=== PATIENT | female | born 1965 | race Caucasian/White ===

== ENCOUNTER → 2017-09-28 09:34 | Outpatient (CLI) | payer BC, SELFPAY ==
--- NOTE | 2017-09-28 09:41 | US_ITS ---
US transvaginal HISTORY: Postmenopausal bleeding ITS.REASON: LLQ ABD ABSCESS, RLQ PAIN ORDERING PHYSICIAN: Catalina Tapia PATIENT AGE: 52 years COMPARISON: None FINDINGS: The uterus measures 7.5 x 4.4 x 5 cm with a combined endometrial thickness of 4 mm. There are 3 areas which appear to represent fibroids within the uterus 1 x 1 cm anterior body, 1.2 x 1.3 cm fundal area, 1 x 1 cm anterior body superiorly, and 2.6 x 3.2 cm projecting off the posterior aspect of the body the uterus. These areas showed heterogeneous slight decreased echogenicity. Left ovary is enlarged at 4.6 x 4.4 cm containing a 4 cm cyst without perceptible marsh or internal septation. The right ovary measures 2.6 x 2 cm and has an unremarkable appearance. No cul-de-sac fluid. IMPRESSION: 1. Fibroid involvement of the uterus. 2. 4 cm simple appearing left ovarian cyst
== END ==
PROVIDERS: Family Provider Nurse Practitioner Family; PCP Family Medicine; Visit Provider Nurse Practitioner
DX: R10.31 Right lower quadrant pain (principal); K65.1 Peritoneal abscess
CPT/HCPCS: 76830

== ENCOUNTER → 2017-11-06 14:55 | Outpatient (CLI) | payer BC, SELFPAY ==
[2017-11-06 15:01] LABS: Microscopic, Urine URINE MICROSCOPIC (MICROSCOPIC)
[2017-11-06 15:14] LABS: Appearance,Urine CLEAR (Clear); Bilirubin,Urine Negative (Negative); Blood, Urine Negative (Negative); Color,Urine YELLOW (Yellow); Glucose,Urine (UA) Negative (Negative); Ketones,Urine Negative (Negative); Leukocyte Esterase,Urine Negative (Negative); Nitrate,Urine Negative (Negative); PH,Urine 6.5 (5.0-8.5); Protein,Urine Negative (Negative); Specific Gravity, Urine <= 1.005 (1.005-1.030); Urobilinogen,Urine 0.2 EU/dl (0.2)
[2017-11-06 15:19] LABS: Basophils # 0.1 K/mm3 (0-0.2); Basophils % 0.7 % (0.1-2.0); Eosinophils # 0.2 K/mm3 (0.0-0.4); Eosinophils % 2.6 % (0.1-12.0); Hematocrit 44.8 % (37.0-47.0); Hemoglobin 14.7 g/dL (12.2-16.2); Lymphocytes # 2.8 K/mm3 (0.7-4.5); Lymphocytes % 42.2 K/mm3 (10-50); Mean Corpuscular HGB Conc 32.7 g/dL (31.8-35.4); Mean Corpuscular Hemoglobin 31.1 pg (27.0-31.2); Mean Corpuscular Volume 94.9 fl (81-99); Mean Platelet Volume 7.8 fl (7.4-10.4); Monocytes # 0.3 K/mm3 (0.1-1.0); Monocytes % 4.4 % (1.7-9.3); Neutrophils # 3.4 K/mm3 (1.8-7.8); Neutrophils % 50.1 % (37.0-80.0); Platelet Count 339 K/mm3 (142-424); Red Blood Count 4.72 M/mm3 (4.20-5.40); Red Cell Distribution Width 12.4 % (11.5-17.5); White Blood Count 6.7 K/mm3 (4.8-10.8)
[2017-11-06 15:26] LABS: Bacteria,Urine Trace /lpf; WBC,Urine Occasional #/hpf (0-3)
[2017-11-06 15:51] LABS: Alanine Aminotransferase 29 U/L (12-78); Albumin Level 4.4 gm/dL (3.4-5.0); Albumin/Globulin Ratio 1.4 (1.1-1.8); Alkaline Phosphatase 86 U/L (46-116); Anion Gap 14.4 mEq/L (5-15); Aspartate Amino Transferase 21 U/L (15-37); Bilirubin,Total 0.3 mg/dL (0.2-1.0); Blood Urea Nitrogen 19 mg/dL (7-18); Calcium 9.8 mg/dL (8.5-10.1); Carbon Dioxide 28 mmol/L (21.0-32.0); Chloride 105 mmol/L (98-107); Creatinine,Serum 0.67 mg/dL (0.55-1.02); Estimated Glomerular Filt Rate 92 ml/min (>60); GFR (African American) 111 ML/MIN (>60); Globulin 3.2 gm/dl (1.3-3.2); Glucose 88 mg/dL (74-106); Potassium 4.4 mmoL/L (3.5-5.1); Sodium 143 mmol/L (136-145); Total Protein,Serum 7.6 gm/dL (6.4-8.2)
== END ==
PROVIDERS: Visit Provider Obstetrics & Gynecology
DX: Z01.818 Encounter for other preprocedural examination (principal); D25.9 Leiomyoma of uterus, unspecified; N95.0 Postmenopausal bleeding; N94.9 Unspecified condition associated with female genital organs and menstrual cycle; R10.2 Pelvic and perineal pain
CPT/HCPCS: 36415; 80053; 81001; 85025

== ENCOUNTER → 2017-11-07 14:17 | Outpatient (CLI) | payer BC, SELFPAY ==
--- NOTE | 2017-11-07 14:33 | XR_ITS ---
XR chest 2V HISTORY: ITS.REASON: SMOKER, HTN ORDERING PHYSICIAN: Hira Elizabeth MD PATIENT AGE: 52 years COMPARISON: 03/21/2012 FINDINGS: The cardiomediastinal silhouette and pulmonary vascularity are within normal limits. The lungs are clear without infiltrates, suspicious nodules, or pleural effusions. No acute bony abnormalities. IMPRESSION: Negative chest, no acute finding
== END ==
PROVIDERS: PCP Nurse Practitioner Family; Visit Provider Obstetrics & Gynecology
DX: Z01.818 Encounter for other preprocedural examination (principal); D25.9 Leiomyoma of uterus, unspecified; N95.0 Postmenopausal bleeding; N94.9 Unspecified condition associated with female genital organs and menstrual cycle; R10.2 Pelvic and perineal pain
CPT/HCPCS: 71046; 93005

== ENCOUNTER 2017-11-12 06:03 | Inpatient (IN) ==
--- NOTE | 2017-11-12 09:04 | Operative Note ---
Date of procedure: 11/12/17 Pre-op Diagnosis:: 1. Leiomyomata uteri. 2. Left ovarian cyst. 3. Vulvar lesion. Post-op Diagnosis:: 1. Leiomyomata uteri. 2. Vulvar lesion. Procedure performed:: Total abdominal hysterectomy bilateral salpingo-oophorectomy, excision of vulvar lesion. Surgeon:: Hira Elizabeth MD Cafeteria Worker(s):: Ceci Aguilera MD [id number] ANALYST:: Power Medina Anesthesia: GETA Estimated blood loss (mL): 300 Operative findings:: 1. Leiomyomata uteri. 2. Vulvar lesion. 3. Resolution of left ovarian cyst. Operative note:: After the patient was prepped and draped in usual fashion and general anesthesia was administered, the pedunculated left vulvar lesion was grasped with a Sheree clamp, and excised at its base. The base was then fulgurated and the specimen was submitted to pathology. After appropriate regloving, a low Pfannenstiel incision was made across the midline. The fat fascia was in usual fashion, bleeders being clamped and coagulated along the way. The peritoneum was entered with Metzenbaum scissors, extended above and below. The bowel was packed away, and a self-retaining [place] retractor with bladder blade was placed. The uterus was of normal size, but contained several leiomyomata, including a pedunculated leiomyoma at the fundus. Each tube was normal, and both ovaries appeared atrophic. The left ovarian cyst that had been seen on ultrasound appeared to have resolved. The uterine fundus was grasped with a double-tooth tenaculum. The round ligament on either side was Binta clamped, cut, and Binta suture with #1 Vicryl. The mandibular pelvic ligament on either side was Binta clamped, cut, and Binta suture with #1 Vicryl, thus including the tubes and ovaries within the uterine specimen. The uterine vessels, the cardinal and uterosacral ligaments were individually, bilaterally, Binta clamped, cut, and Binta sutured with #1 Vicryl. The vagina was entered anteriorly with a knife, and the uterine specimen was removed with Robert scissors. Bina clamps were used to tent up the vaginal cuff, which was closed with a running unlocked suture of #1 Vicryl. Irrigation was then carried out, and there was no undue bleeding noted. Gelfoam was placed against the back of the vaginal cuff for hemostasis. The upper abdomen was explored and found to be normal. The peritoneum was grasped with 3 Anitha clamps, and closed with a running semi-locked suture of 0 Vicryl. The muscle was approximated with a running unlocked suture of 0 Vicryl. The fascia was closed with a running locked suture of #1 Vicryl. The subcutaneous fat and Trevin's fascia were closed with a running of suture of 2-0 Vicryl. The skin was closed with a subcuticular suture of 3-0 Vicryl, and appropriately dressed. The urine is clear in the Dash catheter. The sponge and needle count was correct. The estimated blood loss was 300 cc. The patient tolerated the procedure well, was taken to PACU in excellent condition. Condition: stable Disposition: floor Specimens:: 1. Uterus. 2. Both adnexa. 3. Vulvar lesion. Complications:: None
--- NOTE | 2017-11-12 09:19 | Progress Note ---
[facility] Anesthesia Record Part I Intake, IV Amount: 1,800 Estimated blood loss (mL): 300 Urine output (mL): 250 Blood Pressure: 140/85 SaO2: 95 Pulse Rate: 73 Respiratory Rate: 16 Temperature: 97.3 F Patient is:: Drowsy, Stable Stable to PACU at:: 09:15
--- NOTE | 2017-11-12 09:20 | Progress Note ---
[facility] Anesthesia Record Part II Discharge Time: 09:45 Destination: 2nd floor PACU nurse assessment reviewed?: Yes Patient Condition:: Good Anesthesia Complications:: None
--- NOTE | 2017-11-12 09:21 | Progress Note ---
[facility] Anesthesia Checklist - Patient Identification Patient Identification: Arm Band - Structural Data Admitted From: Home Planned Operative Procedure/s: regan,bso Consent for Planned Operative Procedure(s) Verified: Yes Verified Documents: Surgical Consent, History and Physical - NPO Status Verified Time NPO: 00:00 - Additional verifications Anesthesia Reactions: No - Airway Assessment C-Spine Mobility Assessed: Yes (mp2) TMJ Mobility Assessed: Yes Dentition: Good Dentition - Neurological Assessment Level of Consciousness: Awake, Alert - Anesthesia Plan Anesthesia Risk discussed: Yes Anesthesia Plan: Verified Anesthesia Type: General (with U/S guided TAP block) [facility] Anesthesia HX I have reviewed the patient's past medical history: Yes Medical History: Reports:: Hypertension Denies:: Cancer, Diabetes Mellitus Type 1, Diabetes Mellitus Type 2, Internal Pacemaker, MRSA, Seizures Other Medical History: Denies: Blood Transfusion Reaction Laterality Cases: Left: Arthroscopy Shoulder, Bilateral: Carpal Tunnel Release Other Surgeries: Yes: Other. No: Pacemaker Amputation: No Fractures: No *Family Hx:: Cancer, Coronary Artery Disease, Diabetes, Heart Attack, Hypertension, Stroke
[2017-11-12 11:11] LABS: Hematocrit 38.9 % (37.0-47.0); Hemoglobin 12.9 g/dL (12.2-16.2)
--- NOTE | 2017-11-12 16:47 | Progress Note ---
Internal Medicine - PN: Subj *Date: 11/12/17 *Time: 16:46 Exam Vital signs and Labs for Last 24 Hours: Temp Pulse Resp BP Pulse Ox 97.9 F 83 16 150/84 99 11/12/17 13:00 11/12/17 15:00 11/12/17 15:00 11/12/17 15:00 11/12/17 15:00 Laboratory Results - last 24 hr 11/12/17 06:14: Urine HCG, Qual Negative 11/12/17 07:20: Urine Color Yellow, Urine Appearance Clear, Urine pH 5.5, Ur Specific [place] <= 1.005, Urine Protein Negative, Urine Glucose (UA) Negative, Urine Ketones Negative, Urine Blood Negative, Urine Nitrate Negative, Urine Bilirubin Negative, Urine Urobilinogen 0.2, Ur Leukocyte Esterase Negative, Urine RBC None, Urine WBC None, Ur Squamous Epith Cells None, Urine Bacteria Trace 11/12/17 10:50: Hgb 12.9, Hct 38.9 I & O for Last 24 hours: Intake & Output 11/10/17 11/11/17 11/12/17 11/13/17 11:59 11:59 11:59 11:59 Intake Total 2250 / 2250 360 / 360 Output Total 100 / 100 Balance 2150 / 2150 360 / 360
--- NOTE | 2017-11-12 20:19 | Progress Note ---
Internal Medicine - PN: Subj *Date: 11/12/17 (I was called to see the patient because the site of the left vulvar nevus excision was bleeding. Pressure had been applied, but he continued to bleed. Her main incision (Pfannenstiel) is intact and doing well. She is under good pain control. I came in and inspected the above-mentioned area. There was a moderate amount of oozing, and the skin edges had . I prepped the area with Betadine and infused 10 cc of 1% Xylocaine as a local anesthetic. I then closed the wound with a running unlocked suture of 2-0 Vicryl. The patient tolerated the procedure well.) *Time: 20:17 Exam Vital signs and Labs for Last 24 Hours: Temp Pulse Resp BP Pulse Ox 98.0 F 86 16 146/86 96 11/12/17 17:00 11/12/17 17:00 11/12/17 17:55 11/12/17 17:00 11/12/17 17:00 Laboratory Results - last 24 hr 11/12/17 06:14: Urine HCG, Qual Negative 11/12/17 07:20: Urine Color Yellow, Urine Appearance Clear, Urine pH 5.5, Ur Specific [place] <= 1.005, Urine Protein Negative, Urine Glucose (UA) Negative, Urine Ketones Negative, Urine Blood Negative, Urine Nitrate Negative, Urine Bilirubin Negative, Urine Urobilinogen 0.2, Ur Leukocyte Esterase Negative, Urine RBC None, Urine WBC None, Ur Squamous Epith Cells None, Urine Bacteria Trace 11/12/17 10:50: Hgb 12.9, Hct 38.9 I & O for Last 24 hours: Intake & Output 11/10/17 11/11/17 11/12/17 11/13/17 11:59 11:59 11:59 11:59 Intake Total 2250 / 2250 1952 / 1952 Output Total 100 / 100 600 / 600 Balance 2150 / 2150 1353 / 1353
--- NOTE | 2017-11-13 06:38 | Progress Note ---
Internal Medicine - PN: Subj *Date: 11/13/17 *Time: 06:33 Exam Vital signs and Labs for Last 24 Hours: Temp Pulse Resp BP Pulse Ox 98.3 F 87 17 130/71 95 11/13/17 04:53 11/13/17 04:53 11/13/17 04:53 11/13/17 04:53 11/12/17 21:00 Laboratory Results - last 24 hr 11/12/17 07:20: Urine Color Yellow, Urine Appearance Clear, Urine pH 5.5, Ur Specific [place] <= 1.005, Urine Protein Negative, Urine Glucose (UA) Negative, Urine Ketones Negative, Urine Blood Negative, Urine Nitrate Negative, Urine Bilirubin Negative, Urine Urobilinogen 0.2, Ur Leukocyte Esterase Negative, Urine RBC None, Urine WBC None, Ur Squamous Epith Cells None, Urine Bacteria Trace 11/12/17 10:50: Hgb 12.9, Hct 38.9 I & O for Last 24 hours: Intake & Output 11/10/17 11/11/17 11/12/17 11/13/17 11:59 11:59 11:59 11:59 Intake Total 2250 / 2250 3753 / 3753 Output Total 100 / 100 5200 / 5200 Balance 2150 / 2150 -1447 / -1447
--- NOTE | 2017-11-13 08:31 | Progress Note ---
Internal Medicine - PN: Subj *Date: 11/13/17 *Time: 08:25 Exam Vital signs and Labs for Last 24 Hours: Temp Pulse Resp BP Pulse Ox 98.3 F 87 17 130/71 95 11/13/17 04:53 11/13/17 04:53 11/13/17 04:53 11/13/17 04:53 11/12/17 21:00 Laboratory Results - last 24 hr 11/12/17 07:20: Urine Color Yellow, Urine Appearance Clear, Urine pH 5.5, Ur Specific [place] <= 1.005, Urine Protein Negative, Urine Glucose (UA) Negative, Urine Ketones Negative, Urine Blood Negative, Urine Nitrate Negative, Urine Bilirubin Negative, Urine Urobilinogen 0.2, Ur Leukocyte Esterase Negative, Urine RBC None, Urine WBC None, Ur Squamous Epith Cells None, Urine Bacteria Trace 11/12/17 10:50: Hgb 12.9, Hct 38.9 I & O for Last 24 hours: Intake & Output 11/10/17 11/11/17 11/12/17 11/13/17 11:59 11:59 11:59 11:59 Intake Total 2250 / 2250 3753 / 3753 Output Total 100 / 100 5200 / 5200 Balance 2150 / 2150 -1447 / -1447
--- NOTE | 2017-11-13 08:45 | Progress Note ---
Internal Medicine - PN: Subj *Date: 11/13/17 *Time: 08:41 (This is postop day #1. Patient is afebrile. Vital signs are stable. Wound clean. Abdomen soft. The resutured left groin site is not bleeding and is non-tender. Hemoglobin 12.9 g. She has allergies in is feeling "stuffy"--going to restart her Claritin that she takes at home. Urine output is good. Impression: Stable.) Exam Vital signs and Labs for Last 24 Hours: Temp Pulse Resp BP Pulse Ox 98.3 F 87 17 130/71 95 11/13/17 04:53 11/13/17 04:53 11/13/17 04:53 11/13/17 04:53 11/12/17 21:00 Laboratory Results - last 24 hr 11/12/17 07:20: Urine Color Yellow, Urine Appearance Clear, Urine pH 5.5, Ur Specific [place] <= 1.005, Urine Protein Negative, Urine Glucose (UA) Negative, Urine Ketones Negative, Urine Blood Negative, Urine Nitrate Negative, Urine Bilirubin Negative, Urine Urobilinogen 0.2, Ur Leukocyte Esterase Negative, Urine RBC None, Urine WBC None, Ur Squamous Epith Cells None, Urine Bacteria Trace 11/12/17 10:50: Hgb 12.9, Hct 38.9 I & O for Last 24 hours: Intake & Output 11/10/17 11/11/17 11/12/17 11/13/17 11:59 11:59 11:59 11:59 Intake Total 2250 / 2250 3753 / 3753 Output Total 100 / 100 5200 / 5200 Balance 2150 / 2150 -1447 / -1447
--- NOTE | 2017-11-13 10:03 | Pharmacy Consult Notes ---
[facility] Pharmacy VTE Monitoring - Patient Demographics Admission date: 11/12/17 Report Date: 11/13/17 Time: 10:02 Allergies/Adverse Reactions: Patient Allergies No Known Allergies Allergy (Verified 11/12/17 11:11) Height: 1.63 m Weight: 85.729 kg - VTE Risk Labs: VTE Related Lab Results Hgb 12.9 g/dL (12.2-16.2) 11/12/17 10:50 Hct 38.9 % (37.0-47.0) 11/12/17 10:50 - Prophylaxis Types of VTE Prophylaxis: IPCS Knee High
--- NOTE | 2017-11-14 08:39 | Progress Note ---
Internal Medicine - PN: Subj *Date: 11/14/17 *Time: 08:39 (This is postop day #3. The patient is afebrile. Vital signs stable. Wound clean. Abdomen soft. She is eating and ambulating and has had a bowel movement. Her hemoglobin is 12.9 g. She will be discharged today.) Exam Vital signs and Labs for Last 24 Hours: Temp Pulse Resp BP Pulse Ox 98.0 F 85 16 144/86 95 11/14/17 08:00 11/14/17 08:00 11/14/17 08:00 11/14/17 08:00 11/14/17 08:00 I & O for Last 24 hours: Intake & Output 11/11/17 11/12/17 11/13/17 11/14/17 11:59 11:59 11:59 11:59 Intake Total 2250 / 2250 3753 / 3753 Output Total 100 / 100 6600 / 6600 3000 / 3000 Balance 2150 / 2150 -2847 / -2847 -3000 / -3000 Weight 189 lb 0.009 oz
--- NOTE | 2017-11-14 08:43 | Discharge Summary ---
General - General Admission date: 11/12/17 Discharge date: 11/14/17 Hospital Course Hospital Course: This 52-year-old white female was admitted for definitive treatment of symptomatic leiomyomata, a left ovarian cyst (per ultrasound), and the pedunculated vulvar nevus. On the date of admission, she was taken to the operating room, where she underwent a total abdominal hysterectomy, bilateral salpingo-oophorectomy (the left ovarian cyst had resolved), and excision of the left vulvar lesion. She received Delestrogen 30 mg IM in PACU. Postoperatively , the patient is done well. She is eating and ambulating, and has had a bowel movement. Her abdominal incision is healing well. The left vulvar excision site required suturing after initially being closed with cautery, but it is healing well. Patient is a smoker, but refuses smoking cessation patches. Her hemoglobin is 12.9 g. She is discharged home on the second postoperative day on Percocet 7.5/325 (#30), 1 p.o. every 6 hours as needed pain. She is given appropriate instructions as to diet, exercise, and wound care, and she is to return to the office in 2 weeks. Objective Vital signs: Temp Pulse Resp BP Pulse Ox 98.0 F 85 16 144/86 95 11/14/17 08:00 11/14/17 08:00 11/14/17 08:00 11/14/17 08:00 11/14/17 08:00 Discharge Plan - Patient Discharge Instructions - Follow up Plan Home Medications: Home Medications Medication Instructions Recorded Confirmed Type lisinopril 10 mg tablet 10 mg PO DAILY tab 10/16/17 11/12/17 History ranitidine 150 mg tablet 150 mg PO BID tab 10/16/17 11/12/17 History Loratadine [Claritin] 10 mg PO DAILY 11/08/17 11/12/17 History Multivitamin with Minerals [One 1 each PO DAILY 11/08/17 11/12/17 History Daily Complete] Prescriptions/Medication Reconciliation: No Action lisinopril 10 mg tablet 10 mg PO DAILY tab ranitidine 150 mg tablet 150 mg PO BID tab Multivitamin with Minerals [One Daily Complete] 1 each PO DAILY Loratadine [Claritin] 10 mg PO DAILY
== END 2017-11-14 09:10 | disposition home or self-care (01) ==
LOC: OR 06:03 → OB 10:06
PROVIDERS: ADMIT Obstetrics & Gynecology; ATTEND Obstetrics & Gynecology

== ENCOUNTER 2018-12-29 18:12 | Emergency (ER) | payer BC, SELFPAY ==
[2018-12-29 18:22] VITALS: BP 148/90; PULSE 96; RESP 20; TEMP 36.8; O2SAT 96
--- NOTE | 2018-12-29 18:24 | XR_ITS ---
XR foot LT min 3V HISTORY: Posttraumatic pain ITS.REASON: FALL ORDERING PHYSICIAN: Alison Ingram APRN PATIENT AGE: 53 years COMPARISON: None FINDINGS: There is a nondisplaced fracture involving the mid shaft of the proximal phalanx of the fifth digit. No other significant anomalies. IMPRESSION: Nondisplaced fracture proximal phalanx fifth digit
--- NOTE | 2018-12-29 18:24 | XR_ITS ---
XR ankle LT min 3V HISTORY: Posttraumatic pain ITS.REASON: FALL ORDERING PHYSICIAN: Alison Ingram APRN PATIENT AGE: 53 years Comparison: None FINDINGS: No fracture or dislocation. No lytic or blastic change. There is normal mineralization.. The joint spaces are well-preserved. No significant degenerative/arthritic changes. No erosive changes evident. IMPRESSION: Negative ankle, no acute finding
--- NOTE | 2018-12-29 18:29 | HMH.EDUTC ---
[facility] [place] Disposition Clinical Impression: Fracture of toe of left foot Qualifiers: Encounter type: initial encounter Toe: lesser toe Fracture type: closed Phalanx: proximal Fracture alignment: nondisplaced Qualified Code(s): S92.515A - Nondisplaced fracture of proximal phalanx of left lesser toe(s), initial encounter for closed fracture Disposition: Home, Self-Care Condition on Discharge: Good Instructions: DI for Toe Fracture, Toe Fracture, How To Perform RICE (Rest, Ice, Compress, Elevate) Additional Instructions: *RICE, Rest the extremity, Ice 15-20 minutes 3-4 times daily, Compress- wear the logan wrap as discussed as much as possible to help reduce swelling and pain, Elevate the extremity when at rest *Logan wrap/ post op shoes for support and help control swelling, use it except in the shower. Be sure that is not to tight but not to loose either *Elevate when resting *Ibuprofen every 6-8 hours as needed for pain an inflammation. If need something more can take Tylenol in between doses of Ibuprofen to help Immediately follow up with your family doctor for new or worsening of symptoms, or no noticeable improvement over the next 3-5 days Follow up with Dr Clark for further evaluation and examination for pain in foot and fracture toe Return if needed Straight to ER if any life threatening symptoms Referrals: Catalina Tapia APRN [Primary Care Provider] - As needed Lorena Clark DPM [Staff Physician] - Forms: Work/School Release Time of Disposition: 19:08 Medical Decision Making - Silvio Inquiry Pt receiving controlled substance: No Silvio was queried for this patient: No Vital Signs: 12/29/18 18:22 Temperature 98.3 F Temperature Source Oral Pulse Rate [Right Brachial] 96 H Respiratory Rate 20 Blood Pressure [Right Arm] 148/90 H Blood Pressure Mean [Right Arm] 109 Blood Pressure Source [Right Arm] Automatic Cuff Blood Pressure Position [Right Arm] Sitting 02 Sat by Pulse Oximetry 96 Oxygen Delivery Method Room Air Orders (Tests/Meds): ORDERS Category Date Time Status XR ankle LT min 3V Stat Exams 12/29/18 18:24 Taken XR foot LT min 3V Stat Exams 12/29/18 18:24 Taken - Radiology Data #1 Image(s): Ankle, Foot/Toes Image Reviewed: Yes I reviewed the patient's radiology image Negative left ankle, heel spur noted, Left foot- Fracture of the left proximal phalanx 5th toe [facility] [place] HPI - General Stated complaint: AO 0525 injured L Little toe Time Seen by Provider: 12/29/18 18:29 Mode of Arrival: Family Vehicle Source of Information: Patient Limitations: No Limitations Description of Symptoms (Recalled from Triage Doc. by RN): C/O FALL LAST SUNDAY. C/O LEFT FOOT AND ANKLE PAIN HEENT Symptoms (Recalled from RN notes): No Resp Symptoms (Recalled from RN notes): No Skin Symptoms (Recalled from RN notes): No MS Symptoms (Recalled from RN notes): Yes Functional Status (Recalled from RN notes): N/A - History of Present Illness Provider Complaint: Patient states that she fell last Sunday and hurt her little toe on her left foot State that she has been having pain and swelling in the little toe ever since State that she has been staying upstairs with family member and now having pain that starts in her little toe and shoots down the side of her foot and at times up into her ankle denies new injury - Related Data Home Medications Medication Instructions Recorded Confirmed lisinopril 10 mg tablet 10 mg PO DAILY tab 10/16/17 11/12/17 ranitidine 150 mg tablet 150 mg PO BID tab 10/16/17 11/12/17 Loratadine [Claritin] 10 mg PO DAILY 11/08/17 11/12/17 Multivitamin with Minerals [One 1 each PO DAILY 11/08/17 11/12/17 Daily Complete] Previous Rx's Medication Instructions Recorded estradiol 1 mg tablet 1 mg PO DAILY 30 Days #30 tab 03/26/18 Allergies Allergy/AdvReac Type Severity Reaction Status Date / Time No Known Allergies Allergy Verified 12/28/17 10:04 - Worker's Comp Is thi
--- NOTE | 2018-12-29 18:32 | ED_ITS ---
[facility] [place] Disposition Clinical Impression: Fracture of toe of left foot Qualifiers: Encounter type: initial encounter Toe: lesser toe Fracture type: closed Phalanx: proximal Fracture alignment: nondisplaced Qualified Code(s): S92.515A - Nondisplaced fracture of proximal phalanx of left lesser toe(s), initial encounter for closed fracture Disposition: Home, Self-Care Condition on Discharge: Good Instructions: DI for Toe Fracture, Toe Fracture, How To Perform RICE (Rest, Ice, Compress, Elevate) Additional Instructions: *RICE, Rest the extremity, Ice 15-20 minutes 3-4 times daily, Compress- wear the logan wrap as discussed as much as possible to help reduce swelling and pain, Elevate the extremity when at rest *Logan wrap/ post op shoes for support and help control swelling, use it except in the shower. Be sure that is not to tight but not to loose either *Elevate when resting *Ibuprofen every 6-8 hours as needed for pain an inflammation. If need something more can take Tylenol in between doses of Ibuprofen to help Immediately follow up with your family doctor for new or worsening of symptoms, or no noticeable improvement over the next 3-5 days Follow up with Dr Clark for further evaluation and examination for pain in foot and fracture toe Return if needed Straight to ER if any life threatening symptoms Referrals: Catalina Tapia APRN [Primary Care Provider] - As needed Lorena Clark DPM [Staff Physician] - Forms: Work/School Release Time of Disposition: 19:08 Medical Decision Making - Silvio Inquiry Pt receiving controlled substance: No Silvio was queried for this patient: No Vital Signs: 12/29/18 18:22 Temperature 98.3 F Temperature Source Oral Pulse Rate [Right Brachial] 96 H Respiratory Rate 20 Blood Pressure [Right Arm] 148/90 H Blood Pressure Mean [Right Arm] 109 Blood Pressure Source [Right Arm] Automatic Cuff Blood Pressure Position [Right Arm] Sitting 02 Sat by Pulse Oximetry 96 Oxygen Delivery Method Room Air Orders (Tests/Meds): ORDERS Category Date Time Status XR ankle LT min 3V Stat Exams 12/29/18 18:24 Taken XR foot LT min 3V Stat Exams 12/29/18 18:24 Taken - Radiology Data #1 Image(s): Ankle, Foot/Toes Image Reviewed: Yes I reviewed the patient's radiology image Negative left ankle, heel spur noted, Left foot- Fracture of the left proximal phalanx 5th toe [facility] [place] HPI - General Stated complaint: AO 0525 injured L Little toe Time Seen by Provider: 12/29/18 18:29 Mode of Arrival: Family Vehicle Source of Information: Patient Limitations: No Limitations Description of Symptoms (Recalled from Triage Doc. by RN): C/O FALL LAST SUNDAY. C/O LEFT FOOT AND ANKLE PAIN HEENT Symptoms (Recalled from RN notes): No Resp Symptoms (Recalled from RN notes): No Skin Symptoms (Recalled from RN notes): No MS Symptoms (Recalled from RN notes): Yes Functional Status (Recalled from RN notes): N/A - History of Present Illness Provider Complaint: Patient states that she fell last Sunday and hurt her little toe on her left foot State that she has been having pain and swelling in the little toe ever since State that she has been staying upstairs with family member and now having pain that starts in her little toe and shoots down the keyonna e of her foot and at times up into her ankle denies new injury - Related Data
[2018-12-29 19:13] VITALS: BP 148/90; PULSE 96; RESP 20; TEMP 36.8; O2SAT 96
== END 2018-12-29 19:16 | disposition home or self-care (01) ==
PROVIDERS: Emergency Provider Nurse Practitioner; PCP Nurse Practitioner
DX: S92.515A Nondisplaced fracture of proximal phalanx of left lesser toe(s), initial encounter for closed fracture (principal); W01.0XXA Fall on same level from slipping, tripping and stumbling without subsequent striking against object, initial encounter; Y92.019 Unspecified place in single-family (private) house as the place of occurrence of the external cause; I10 Essential (primary) hypertension; F17.210 Nicotine dependence, cigarettes, uncomplicated
CPT/HCPCS: 29515; 73610; 73630; 99201

== ENCOUNTER 2021-05-15 15:24 | Emergency (ER) | payer BC, SELFPAY ==
--- NOTE | 2021-05-15 15:39 | XR_ITS ---
PROCEDURE INFORMATION: Exam: XR Left Hip Exam date and time: 05/15/2021 3:39 PM Age: 56 years old Clinical indication: Injury or trauma; Fall; Blunt trauma (contusions or hematomas); Left; Hip; Injury details: Fell getting out of the hot tub TECHNIQUE: Imaging protocol: XR Left hip. Views: 2 or 3 views hip with pelvis when performed. COMPARISON: No relevant prior studies available. FINDINGS: Bones/joints: No acute fracture or dislocation. The SI joints, hip joints and pubic symphysis are unremarkable. Normal bone mineralization. Soft tissues: Unremarkable. IMPRESSION: No acute findings.
[2021-05-15 16:05] VITALS: BP 156/84; PULSE 79; RESP 18; TEMP 36.9; O2SAT 99
--- NOTE | 2021-05-15 16:22 | XR_ITS ---
PROCEDURE INFORMATION: Exam: XR Sacrum and Coccyx, 2 or More Views Exam date and time: 05/15/2021 4:22 PM Age: 56 years old Clinical indication: Injury or trauma; Fall; Blunt trauma (contusions or hematomas); Additional info: Fall -- she fell getting out of the hot tub on TECHNIQUE: Imaging protocol: XR of the sacrum and coccyx, 2 or more views. COMPARISON: CR XR HIP LT 2-3V W/PELVIS 05/15/2021 4:17 PM FINDINGS: Bones/joints: No acute fracture or dislocation. Normal bone mineralization. Soft tissues: Normal. IMPRESSION: No acute findings.
--- NOTE | 2021-05-15 17:00 | HMH.EDUTC ---
[facility] [place] Disposition Clinical Impression: Traumatic hematoma of buttock Qualifiers: Encounter type: initial encounter Qualified Code(s): S30.0XXA - Contusion of lower back and pelvis, initial encounter Disposition: Home, Self-Care Condition on Discharge: Good Instructions: DI for Hematoma (Bruise) Additional Instructions: NSAIDs , such as ibuprofen, help decrease swelling, pain, and fever. This medicine is available with or without a doctor's order. NSAIDs can cause stomach bleeding or kidney problems in certain people. If you take blood thinner medicine, always ask your healthcare provider if NSAIDs are safe for you. Always read the medicine label and follow directions. Rest the area. Rest will help your body heal and will also help prevent more damage. Apply ice as directed. Ice helps reduce swelling. Ice may also help prevent tissue damage. Use an ice pack, or put crushed ice in a bag. Cover it with a towel. Place it on your hematoma for 20 minutes every hour, or as directed. 2-3 times daily Warm compresses may help with soreness and pain Warm baths with epson salt may help with soreness and bruising Hematoma may take several weeks to heal Follow up with Family Doctor if no improvement, any warmth, redness or worsening of swelling Straight to ER if any life threatening symptoms Referrals: Catalina Tapia APRN [Primary Care Provider] - As needed Time of Disposition: 17:17 Medical Decision Making - Silvio Inquiry Pt receiving controlled substance: No Silvio was queried for this patient: No Vital Signs: 05/15/21 16:05 05/15/21 17:16 Temperature 98.5 F 98.5 F Temperature Source Oral Pulse Rate 79 Pulse Rate [Right Brachial] 79 Respiratory Rate 18 18 Blood Pressure 156/84 H Blood Pressure [Right Arm] 156/84 H Blood Pressure Mean [Right Arm] 108 Blood Pressure Source [Right Arm] Automatic Cuff Blood Pressure Position [Right Arm] Sitting 02 Sat by Pulse Oximetry 99 Oxygen Delivery Method Room Air - Radiology Data #1 Image(s): Pelvis, Hip Image Reviewed: Yes I reviewed the patient's radiology image w/the ED provider Preliminary Findings: No Fracture Seen #2 Image(s): Other (coccyx) Image Reviewed: Yes I reviewed the patient's radiology image w/the ED provider Preliminary Findings: No Fracture Seen [facility] [place] HPI - General Stated complaint: AO10/14 left hip injury Time Seen by Provider: 05/15/21 17:00 Mode of Arrival: Ambulatory Source of Information: Patient Limitations: No Limitations Description of Symptoms (Recalled from Triage Doc. by RN): PATIENT STATES ON SUNDAY SHE FELL DOWN APPROX 4 STEPS AND LANDED ON LEFT HIP. C/O PAIN TO AREA. BRUISING NOTED TO LEFT BUTTOCK. DENIES HITTING HEAD OR LOC HEENT Symptoms (Recalled from RN notes): No Resp Symptoms (Recalled from RN notes): No Skin Symptoms (Recalled from RN notes): No MS Symptoms (Recalled from RN notes): Yes Functional Status (Recalled from RN notes): WNL - History of Present Illness Provider Complaint: Patient states that on she got out of hot tub and was walking on steps when she slipped and fell and landed on her buttock area States that she immediately had pain in her left buttock States that since then she has continued to have bruising and pain in buttock when she tries to sit on that side and certain ways she moves States that she has been putting ice on it and it has helped some with pain but today when she was still bruised she came in to get it checked Denies any other injury - Related Data Home Medications Medication Instructions Recorded Confirmed lisinopril 10 mg tablet 10 mg PO DAILY tab 10/16/17 11/12/17 ranitidine HCl 150 mg tablet 150 mg PO BID tab 10/16/17 11/12/17 Loratadine [Claritin] 10 mg PO DAILY 11/08/17 11/12/17 Multivitamin with Minerals [One 1 each PO DAILY 11/08/17 11/12/17 Daily Complete] Previous Rx's Medication Instructions Recorded estradiol 1 mg tablet 1 mg PO DAILY #30 tab
[2021-05-15 17:16] VITALS: BP 156/84; PULSE 79; RESP 18; TEMP 36.9; O2SAT 99
== END 2021-05-15 17:21 | disposition home or self-care (01) ==
PROVIDERS: Emergency Provider Nurse Practitioner; PCP Nurse Practitioner
DX: S30.0XXA Contusion of lower back and pelvis, initial encounter (principal); W10.9XXA Fall (on) (from) unspecified stairs and steps, initial encounter; Y92.019 Unspecified place in single-family (private) house as the place of occurrence of the external cause; I10 Essential (primary) hypertension
CPT/HCPCS: 72220; 73502; 99202; G0463

== ENCOUNTER → 2022-06-01 14:51 | Outpatient (CLI) | payer BC, SELFPAY ==
--- NOTE | 2022-06-01 15:04 | XR_ITS ---
FINAL REPORT CLINICAL HISTORY: LOW BACK PAIN FINDINGS: 4 views were obtained. There is no acute fracture. There is no malalignment. There are mild and moderate degenerative changes with osteophytes. There is multilevel facet arthropathy. IMPRESSION: Mild and moderate degenerative changes. Reviewed, Interpreted and Dictated by Marvel Valle III, MD Transcribed by Hossein Cabrera Authenticated and [facility]
== END ==
PROVIDERS: PCP Nurse Practitioner Family; Visit Provider Nurse Practitioner Family
DX: M54.41 Lumbago with sciatica, right side (principal)
CPT/HCPCS: 72110

== ENCOUNTER → 2022-06-20 12:52 | Outpatient (CLI) | payer BC, SELFPAY ==
--- NOTE | 2022-06-20 12:57 | MR_ITS ---
FINAL REPORT CLINICAL HISTORY: .lower back pain with stabbing pain down right leg with numbness x 2 months FINDINGS: MRI LUMBAR SPINE W/O CONTRAST Multiplanar MR imaging of the lumbar spine was performed without contrast. On the sagittal T2-weighted images, disc degeneration is seen at multiple levels. The vertebral alignment is normal. There is no evidence of fracture. The conus has an unremarkable appearance. T12-L1: No significant central canal stenosis or neural foraminal narrowing. L1-2: An annular disc bulge is present. No significant central canal stenosis or neural foraminal narrowing. L2-3: An annular disc bulge is present with facet arthropathy. There is a small right foraminal disc protrusion with mild right neural foraminal narrowing. L3-4: An annular disc bulge with facet arthropathy and vertebral osteophytes is present with a small right paracentral disc protrusion with possible right L4 nerve root impingement. There is moderate bilateral neural foraminal narrowing and mild central canal stenosis with an AP diameter of the thecal sac of 7 mm. L4-5: An annular disc bulge with facet arthropathy and vertebral osteophytes is present with moderate bilateral neural foraminal narrowing. There is right lateral recess stenosis with probable right L5 nerve root impingement. There is mild central canal stenosis with an AP diameter of the thecal sac of 7 mm. L5-S1: An annular disc bulge with facet arthropathy and moderate bilateral neural foraminal narrowing is present. There is a left paracentral disc protrusion which contacts the left S1 nerve root. IMPRESSION: Multilevel disc degeneration and spondylosis with areas of neural foraminal narrowing as above. Mild central canal stenosis at L3-4 and L4-5. Disc protrusions at L2-3, L3-4 and L5-S1. Reviewed, Interpreted and Dictated by Marvel Valle III, MD Transcribed by Nalini Garcia Authenticated and [facility]
== END ==
PROVIDERS: PCP Nurse Practitioner Family; Visit Provider Nurse Practitioner Family
DX: M54.41 Lumbago with sciatica, right side (principal)
CPT/HCPCS: 72148; 76376

== ENCOUNTER 2023-09-12 11:14 | Emergency (ER) | payer BC, SELFPAY ==
[2023-09-12 11:30] VITALS: BP 152/96; PULSE 83; RESP 19; TEMP 36.6; O2SAT 99; BMI 35.8
--- NOTE | 2023-09-12 11:38 | ED_ITS ---
Discharge Plan Disposition Patient Disposition: Home, Self-Care Condition: Good Prescriptions Prescriptions: New cyclobenzaprine 10 mg Tablet 10 mg PO BID PRN (Reason: Muscle Spasm) Qty: 20 0RF methylprednisolone 4 mg Tablets,Dose Pack 4 mg PO DIRECTED 6 Days Qty: 21 0RF Rx Instructions: Take 1 pack as directed for 6 days No Action lisinopril 10 mg tablet 10 mg PO DAILY ranitidine HCl 150 mg tablet 150 mg PO BID estradiol 1 mg tablet 1 mg PO DAILY Qty: 30 0RF multivitamin with minerals [One Daily Complete] 1 EACH tablet 1 ea PO DAILY loratadine [Claritin Liqui-Gel] 10 MG capsule 10 mg PO DAILY Referrals Follow up/Referrals: Lindsay Davenport MD [Primary Care Provider] - See instructions Activity Restrictions/Add. Instructions Additional Instructions/Restrictions: Go home and rest. It would be best if you rested tomorrow too. No heavy lifting. No twisting. Take the oral medications as directed. Don't start the oral steroids (medrol dose pack) until tomorrow, since you had the shots in here today. The muscle relaxer (cyclobenzaprine--Flexeril) will make you drowsy, so don't dr vladimir or operate heavy machinery after taking it. Follow up with your regular doctor. GO TO THE ER FOR ANY WORSENING SYMPTOMS OR CONCERN, ESPECIALLY BOWEL OR BLADDER ISSUES, SADDLE AREA NUMBNESS, FEVER, ETC Clinical Impressions Clinical Impression: Thoracic back pain, Left flank pain Stand Alone Forms Stand Alone Forms: Work/School Release Instructions Patient Instructions: Ketorolac Injection, DI for Thoracic Back Pain, Dexamethasone Injection Discharge ED Provider: Kristopher Francisco [facility] General Stated complaint: lower back pain Time Seen by Provider: 09/12/23 11:38 History of Present Illness Provider Complaint: She states that since yesterday she has had low back pain that radiates around her left flank. She denies any injury or recent falls. She does not have a significant history of back pain, kidney stones, or similar episodes of similar pain. She denies any urinary complaints and hematuria. She denies any constipation and diarrhea. Her last normal bowel movement was yesterday. She denies any fever/chills/malaise. She states that bending and twisting certain ways makes her pain worse. She has been taking tylenol and she states that she has not had much pain relief with that. Related Data Home Medications Medication Instructions Recorded Confirmed lisinopril 10 mg tablet 10 mg PO DAILY blood pressure 10/16/17 11/12/17 ranitidine HCl 150 mg tablet 150 mg PO BID Heartburn 10/16/17 11/12/17 loratadine 10 mg capsule (Claritin 10 mg PO DAILY allergies 11/08/17 11/12/17 Liqui-Gel) multivitamin with minerals (One 1 ea PO DAILY Supplement 11/08/17 11/12/17 Daily Complete tablet) Previous Rx's Medication Instructions Recorded estradiol 1 mg tablet 1 mg PO DAILY #30 tabs 04/03/19 cyclobenzaprine 10 mg tablet 10 mg PO BID PRN Muscle Spasm #20 09/12/23 tabs methylprednisolone 4 mg tablets in 4 mg PO DIRECTED 6 days #21 tabs 09/12/23 a dose pack Allergies Allergy/AdvReac Type Severity Reaction Status Date / Time No Known Allergies Allergy Verified 09/12/23 12:00 [facility] Disclaimer: The information contained in this section may have been updated after the patient was seen, as this information can be updated by other users. Social History Smoking Status: Current every day smoker tobacco type: cigarettes packs per day: 1 alcohol intake: never current occupational status: employed Travel in the last 8 weeks: None household members: spouse housing: house current occupation: [employer] maintenance ROS Obtained: Yes All systems reviewed & no additional complaints except as documented Constitutional Constitutional: Denies chills, Denies fever(s), Denies headache(s) and Reports poor appetite ENT Ears, Nose, Mouth, and Throat: Denies dizziness, Denies headache(s) and Denies sore throat Cardiovascular Cardiovascular: Denies dyspnea Respiratory Respiratory: Denies chest congestion, Denies cough and Denies dyspnea Gastrointestinal Gastrointestingal: Reports as per HPI, abdominal pain and nausea; Denies co nstipation, cramping, diarrhea or vomiting Genitourinary Female Genitourinary: Denies difficulty voiding, Denies dysuria, Denies hematuria, Denies urinary frequency, Denies urinary incontinence, Denies urinary hesitancy and Denies urinary urgency Musculoskeletal Musculoskeletal: Denies abnormal gait, Denies arthralgias, Denies numbness and Denies tingling Integumentary/Breasts Skin/Breast: Denies rash Neurologic Neurologic: Denies abnormal gait, Denies abnormal movements, Denies burning sensations, Denies dizziness, Denies headache(s), Denies lack of coordination, Denies numbness, Denies paresthesias, Denies radicular pain, Denies sensory deficit and Denies tingling Physical Exam General General appearance: alert and in no apparent distress Head Head exam: atraumatic and normocephalic Eye Eye exam: Present normal appearance, PERRL and EOMI ENT ENT exam: Present normal exam, normal oropharynx, mucous membranes moist, TM's normal bilaterally and normal external ear exam Neck Neck exam: Present normal inspection, full ROM and trachea midline; Absent tenderness, meningismus or lymphadenopathy Chest Chest inspection: Present normal inspection and symmetric chest wall rise; Absent tenderness, rash or abscess Respiratory Respiratory exam: Present normal lung sounds bilaterally; Absent respiratory distress, wheezes or stridor Cardiovascular Cardiovascular exam: Present regular rate and normal rhythm; Absent irregular rhythm, systolic murmur, diastolic murmur or JVD Abdominal Exam Abdominal exam: Present soft and normal bowel sounds; Absent distention, tenderness, guarding, rebound, rigidity, psoas sign, obturator sign, heel tap sign, Porter's sign, Rovsing's sign or tenderness at McBurney's Point Extremities Exam Extremities exam: Present normal inspection and full ROM; Absent tenderness Back Exam Back exam: Present full ROM, tenderness and CVA tenderness (L); Absent CVA tenderness (R), muscle spasm, paraspinal tenderness, vertebral tenderness, sciatic notch tenderness (R), sciatic notch tenderness (L), straight leg raise (R) or straight leg raise (L) Neurological Exam Neurological exam: Present alert, oriented X3, CN II-XII intact, normal gait and reflexes normal; Absent motor sensory deficit Expanded Neurological Exam Speech: Present fluid speech Cranial nerves: Normal: EOM function (II, III, IV, ), facial sensation (V), facial palsy (VII), gag reflex (IX), spinal accessory function (XI) and tongue deviation (XII) Cerebellar function: normal gait Motor strength - LUE: 5/5 Motor strength - RUE: 5/5 Motor strength - LLE: 5/5 Motor strength - RLE: 5/5 Upper motor neuron exam: Normal: issac neglect and sensory extinction Sensory exam upper extremity: Normal: light touch and 2 point discrimination Sensory exam lower extremity: Normal: light touch and 2 point discrimination DTR: 2+: biceps (L), biceps (R), patellar (L), patellar (R), Achilles tendon (L) and Achilles tendon (R) Spinal cord function: Absent saddle anesthesia Psychiatric Psychiatric exam: Present normal affect and normal mood Skin Skin exam: Present warm, dry, intact and normal color Lymphatic Lymphatic Findings: no adenopathy Medical Decision Making Medical Records Medical records reviewed: No I reviewed the patient's medical records. Silvio Inquiry Pt receiving controlled substance: No Lab Data Lab results reviewed: Yes I reviewed the patient's lab results. 09/12/23 12:36 09/12/23 12:36
[2023-09-12 11:56] LABS: Apearance,Urine Clear (Clear); Bilirubin,Urine Negative (Negative); Blood, Urine Negative (Negative); Color,Urine Yellow (Yellow); Glucose,Urine (UA) Negative (Negative); Ketones,Urine Negative (Negative); Protein,Urine Negative (Negative); Specific Gravity, Urine 1.025 (1.005-1.030); UTC Leukocyte Esterase,Urine Negative (Negative); UTC Nitrate,Urine Negative (Negative); Urobilinogen,Urine 0.2 EU/dl (0.2)
[2023-09-12 12:01] LABS: UTC Influenza A Antigen Negative (Negative); UTC Influenza B Antigen Negative (Negative); UTC Strep Screen (Rapid) Negative (Negative)
[2023-09-12 12:55] LABS: Basophils % 0.7 % (0.1-2.0); Eosinophils # 0.2 K/mm3 (0.0-0.4); Eosinophils % 3.9 % (0.1-12.0); Hematocrit 38.2 % (37.0-47.0); Hemoglobin 12.8 g/dL (12.2-16.2); Lymphocytes # 2.2 K/mm3 (0.7-4.5); Lymphocytes % 49.1 % (10-50); Mean Corpuscular HGB Conc 33.6 g/dL (31.8-35.4); Mean Corpuscular Hemoglobin 30.5 pg (27.0-31.2); Mean Corpuscular Volume 90.9 fl (81-99); Monocytes # 0.2 K/mm3 (0.1-1.0); Monocytes % 4.4 % (1.7-9.3); Neutrophils # 1.9 K/mm3 (1.8-7.8); Neutrophils % 41.9 % (37.0-80.0); Platelet Count 311 K/mm3 (142-424); Red Blood Count 4.21 M/mm3 (4.20-5.40); Red Cell Distribution Width 13.3 % (11.5-17.5); White Blood Count 4.5 K/mm3 (4.8-10.8)
[2023-09-12 12:56] LABS: Amylase 71 U/L (30-110); Anion Gap 11.9 mEq/L (5-15); Blood Urea Nitrogen 18 mg/dl (7-17); Calcium 9.2 mg/dl (8.4-10.2); Carbon Dioxide 27 mmol/L (22.0-30.0); Chloride 105 mmol/L (98-107); Creatinine Clearance Estimated 112 mL/min (50-200); Estimated Glomerular Filt Rate 73 ml/min (>60); GFR (African American) 89 ML/MIN (>60); Glucose 91 mg/dl (74-100); Lipase 42 U/L (23-300); Potassium 3.9 mmoL/L (3.5-5.1); Sodium 140 mmol/L (136-145)
[2023-09-12] MEDS: DEXAMETHASONE 4MG/ML 1ML VIAL 8 MG IM (13:29)
[2023-09-12] MEDS: KETOROLAC 60MG/2ML VIAL 60 MG IM (13:29)
[2023-09-12 13:51] VITALS: BP 109/81; PULSE 70; RESP 19; TEMP 36.9; O2SAT 100
== END 2023-09-12 13:51 | disposition home or self-care (01) ==
PROVIDERS: Emergency Provider Nurse Practitioner Family; PCP Family Medicine
DX: M54.6 Pain in thoracic spine (principal); R10.32 Left lower quadrant pain; F17.210 Nicotine dependence, cigarettes, uncomplicated
CPT/HCPCS: 80048; 81003; 82150; 83690; 85025; 87086; 87804; 87880; 96372; 99212; 99214; G0463

== ENCOUNTER 2023-10-30 10:10 | Emergency (ER) | payer SELFPAY ==
--- NOTE | 2023-10-30 10:28 | PC.NURSE ---
Registration called to state pt wants to go to [facility] prior coming back to ER
[2023-10-30 10:40] VITALS: BP 146/92; PULSE 82; RESP 19; TEMP 36.9; O2SAT 97; BMI 36.0
--- NOTE | 2023-10-30 10:46 | XR_ITS ---
PROCEDURE INFORMATION: Exam: XR Right Tibia and Fibula Exam date and time: 10/30/2023 10:51 AM Age: 58 years old Clinical indication: Injury or trauma; Fall; Blunt trauma; Knee and lower leg; Right TECHNIQUE: Imaging protocol: Radiologic exam of the right tibia and fibula. Views: 2 views. COMPARISON: CR Knee R 10/30/2023 10:50 AM FINDINGS: Bones/joints: No acute fracture or malalignment. Soft tissues: Normal. IMPRESSION: No acute fracture or malalignment.
--- NOTE | 2023-10-30 10:46 | XR_ITS ---
PROCEDURE INFORMATION: Exam: XR Right Knee Exam date and time: 10/30/2023 10:50 AM Age: 58 years old Clinical indication: Injury or trauma; Fall; Blunt trauma; Knee and lower leg; Right TECHNIQUE: Imaging protocol: Radiologic exam of the right knee. Views: 3 views. COMPARISON: No relevant prior studies available. FINDINGS: Bones/joints: No acute fracture or malalignment. Moderate patellofemoral and mild medial and lateral compartment degenerative changes. No joint effusion. Tiny joint body is seen posteriorly. Soft tissues: Normal. IMPRESSION: No acute fracture or malalignment.
--- NOTE | 2023-10-30 10:46 | XR_ITS ---
PROCEDURE INFORMATION: Exam: XR Left Knee Exam date and time: 10/30/2023 10:55 AM Age: 58 years old Clinical indication: Injury or trauma; Fall; Blunt trauma; Knee and lower leg; Left TECHNIQUE: Imaging protocol: Radiologic exam of the left knee. Views: 3 views. COMPARISON: CR Foot L 12/29/2018 6:38 PM FINDINGS: Bones/joints: No acute fracture or malalignment. Moderate medial and mild lateral and patellofemoral compartment degenerative changes. No joint effusion. Soft tissues: Normal. IMPRESSION: No acute fracture or malalignment.
--- NOTE | 2023-10-30 10:46 | XR_ITS ---
PROCEDURE INFORMATION: Exam: XR Left Tibia and Fibula Exam date and time: 10/30/2023 10:56 AM Age: 58 years old Clinical indication: Injury or trauma; Fall; Blunt trauma; Knee and lower leg; Left TECHNIQUE: Imaging protocol: Radiologic exam of the left tibia and fibula. Views: 2 views. COMPARISON: CR Foot L 12/29/2018 6:38 PM FINDINGS: Bones/joints: No acute fracture or malalignment. Soft tissues: Normal. IMPRESSION: No acute fracture or malalignment.
--- NOTE | 2023-10-30 10:56 | ED_ITS ---
Discharge Plan Disposition Patient Disposition: Home, Self-Care Condition: Good Prescriptions Prescriptions: No Action lisinopril 10 mg tablet 10 mg PO DAILY sertraline 25 mg tablet 25 mg PO DAILY omeprazole 20 mg capsule,delayed release(DR/EC) 20 mg PO DAILY One Daily Complete 1 EACH tablet 1 ea PO DAILY Claritin Liqui-Gel 10 MG capsule 10 mg PO DAILY Referrals Follow up/Referrals: Caridad Keenan APRN [Primary Care Provider] - See instructions Activity Restrictions/Add. Instructions Additional Instructions/Restrictions: follow up with primary care provider. Clinical Impressions Clinical Impression: Acute bilateral knee pain Stand Alone Forms Stand Alone Forms: Work/School Release Instructions Patient Instructions: DI for Knee Pain Discharge ED Provider: Starla Gomez [facility] General Stated complaint: WC4/2@0900, pain in both knees Mode of Arrival: Ambulatory Source of Information: Patient Limitations: No Limitations Time Seen by Provider: 10/30/23 10:18 Description of Symptoms (Recalled from Triage Doc. by RN): Pt was working the [employer] and tripped over a box. She is complaining of bilateral knee pain. HEENT Symptoms (Recalled from RN notes): No Resp Symptoms (Recalled from RN notes): No Skin Symptoms (Recalled from RN notes): No MS Symptoms (Recalled from RN notes): Yes Functional Status (Recalled from RN notes): n/a History of Present Illness Provider Complaint: Pt relates that she was working at [employer] at the [employer] and someone set a box beside her and she tripped over the box. She states that she landed on both knees and they bruised up almost immediately. She reports that she can move the right better than the left, but both hurt. Related Data Home Medications Medication Instructions Recorded Confirmed lisinopril 10 mg tablet 10 mg PO DAILY blood pressure 10/16/17 10/30/23 loratadine 10 mg capsule (Claritin 10 mg PO DAILY allergies 11/08/17 10/30/23 Liqui-Gel) multivitamin with minerals (One 1 ea PO DAILY Supplement 11/08/17 10/30/23 Daily Complete tablet) omeprazole 20 mg capsule,delayed 20 mg PO DAILY 10/30/23 10/30/23 release sertraline 25 mg tablet 25 mg PO DAILY 10/30/23 10/30/23 Allergies Allergy/AdvReac Type Severity Reaction Status Date / Time No Known Allergies Allergy Verified 10/30/23 10:52 Worker's Comp Is this a Worker's Comp case?: Yes Is this an H Worker's Comp?: No Is this a [place] Worker's Comp?: No [facility] Disclaimer: The information contained in this section may have been updated after the patient was seen, as this information can be updated by other users. Social History Smoking Status: Current every day smoker tobacco type: cigarettes packs per day: 1 alcohol intake: never current occupational status: employed Travel in the last 8 weeks: None household members: spouse housing: house current occupation: computer maintenance ROS Obtained: Yes All systems reviewed & no additional complaints except as documented Constitutional Constitutional: Reports system reviewed and no additional complaints, except as documented Eyes Eyes: Reports system reviewed and no additional complaints, except as documented ENT Ears, Nose, Mouth, and Throat: Reports system reviewed and no additional complaints, except as documented Cardiovascular Cardiovascular: Reports system reviewed and no additional complaints, except as documented Respiratory Respiratory: Reports system reviewed and no additional complaints, except as documented Gastrointestinal Gastrointestingal: Reports system reviewed and no additional complaints, except as documented Genitourinary Female Genitourinary: Reports system reviewed and no additional complaints, except as documented Musculoskeletal Musculoskeletal: Reports system reviewed and no additional complaints, except as documented, Reports arthralgias and Reports limited range of motion Comments: currently using a wheelchair Integumentary/Breasts Skin/Breast: Reports system reviewed and no additional complaints, except as documented Neurologic Neurologic: Reports system reviewed and no additional complaints, except as documented Endocrine Endocrine: Reports system reviewed and no additional complaints, except as documented Hematologic/Lymphatic Henatologic/Lymphatic: Reports system reviewed and no additional complaints, except as documented Allergic/Immunologic Allergic/Immunologic: Reports system reviewed and no additional complaints, except as documented Physical Exam General General appearance: alert and in no apparent distress Head Head exam: atraumatic and normocephalic Eye Eye exam: Present normal appearance ENT ENT exam: Present normal exam Neck Neck exam: Present normal inspection Chest Chest inspection: Present normal inspection and symmetric chest wall rise Respiratory Respiratory exam: Present normal lung sounds bilaterally Cardiovascular Cardiovascular exam: Present regular rate and normal rhythm Abdominal Exam Abdominal exam: Present soft Expanded Lower Extremity Exam Left: Hip/Pelvis exam: Present normal inspection Knee exam: Present tenderness, ecchymosis, knee extension intact and other (pain expressed with knee flexion) Lower leg exam: Present normal inspection Ankle exam: Present normal inspection Foot/toe exam: Present normal inspection Gait: observed and limited by pain Right: Hip/Pelvis exam: Present normal inspection Upper leg exam: Present normal inspection Knee exam: Present tenderness, ecchymosis and knee extension intact Lower leg exam: Present normal inspection Ankle exam: Present normal inspection Foot/toe exam: Present normal inspection Neurovascular/Tendon exam: Present normal capillary refill Gait: observed and limited by pain Back Exam Back exam: Present normal inspection Neurological Exam Neurological exam: Present alert and oriented X3 Psychiatric Psychiatric exam: Present normal affect and normal mood Skin Skin exam: Present warm, dry and intact Lymphatic Lymphatic Findings: no adenopathy Medical Decision Making Silvio Inquiry Pt receiving controlled substance: No Silvio was queried for this patient: No Vital Signs: 10/30/23 10:40 Temperature 98.4 F Temperature Source Oral Pulse Rate [Right Radial] 82 Respiratory Rate 19 Blood Pressure [Right Arm] 146/92 H Blood Pressure Mean [Right Arm] 110 Blood Pressure Source [Right Arm] Automatic Cuff Blood Pressure Position [Right Arm] Sitting 02 Sat by Pulse Oximetry 97 Oxygen Delivery Method Room Air Orders (Tests/Meds): ORDERS Category Date Time Status Tibia/fibula XR right 2 views [XR tibia fibula RT 2V] Exams 10/30/23 10:46 Ordered Stat XR knee LT 3V Stat Exams 10/30/23 10:46 Ordered XR knee RT 3V Stat Exams 10/30/23 10:46 Ordered XR tibia fibula LT 2V Stat Exams 10/30/23 10:46 Ordered Radiology Data #1: Image(s): Knee and Tib/Fib Image Reviewed: Yes I have reviewed radiologist's interpretation Preliminary Findings: Normal/NAD NDINGS: Bones/joints: No acute fracture or malalignment. Soft tissues: Normal. IMPRESSION: No acute fracture or malalignment. left FINDINGS: Bones/joints: No acute fracture or malalignment. Moderate medial and mild lateral and patellofemoral compartment degenerative changes. No joint effusion. Soft tissues: Normal. IMPRESSION: No acute fracture or malalignment. #2: Image(s): Knee and Tib/Fib Image Reviewed: Yes I have reviewed radiologist's interpretation Preliminary Findings: Normal/NAD FINDINGS: Bones/joints: No acute fracture or malalignment. Moderate medial and mild lateral and patellofemoral compartment degenerative changes. No joint effusion. Soft tissues: Normal. IMPRESSION: No acute fracture or malalignment. Right INDINGS: Bones/joints: No acute fracture or malalignment. Moderate patellofemoral and mild medial and lateral compartment degenerative changes. No joint effusion. Tiny joint body is seen posteriorly. Soft tissues: Normal.
--- NOTE | 2023-10-30 10:57 | PC.NURSE ---
Pt went to RAD
[2023-10-30 12:19] VITALS: BP 146/92; PULSE 82; RESP 19; TEMP 36.9; O2SAT 97
== END 2023-10-30 12:19 | disposition home or self-care (01) ==
PROVIDERS: Emergency Provider Nurse Practitioner Family; PCP Nurse Practitioner Family
DX: M25.561 Pain in right knee (principal); M25.562 Pain in left knee; F17.210 Nicotine dependence, cigarettes, uncomplicated; W18.09XA Striking against other object with subsequent fall, initial encounter
CPT/HCPCS: 73562; 73590; 99212; 99214; G0463

== ENCOUNTER 2023-11-05 16:48 | Outpatient (CLI) | payer BC, SELFPAY ==
--- NOTE | 2023-11-05 | MM_ITS ---
PROCEDURE INFORMATION: Exam: MG Bilateral Screening 3D Mammography Exam date and time: 11/05/2023 4:35 PM Age: 58 years old Clinical indication: Screening mammogram TECHNIQUE: Imaging protocol: Bilateral Screening tomosynthesis and 2D mammography including computer-aided detection (CAD) when performed. COMPARISON: 1. MG DMDXUR DIG MAMM-DX UNILATERAL-RT 07/07/2011 12:54 PM 2. MG DMSB DIGITAL MAMM-SCREEN BILATERAL 12/16/2010 8:49 AM 3. 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 Mass: None. Architectural distortion: No new or suspicious architectural distortion. Calcifications: No new or suspicious calcifications are present Asymmetric density: No new or suspicious asymmetric density is present Skin thickening: None. Axillary adenopathy: None. IMPRESSION: No mammographic evidence of malignancy. Recommend annual screening mammography unless otherwise clinically indicated. ASSESSMENT: BI-RADS category 1: Negative.
== END 2023-11-05 23:59 ==
LOC: RAD 16:48
PROVIDERS: PCP Nurse Practitioner; Visit Provider Nurse Practitioner
DX: Z12.31 Encounter for screening mammogram for malignant neoplasm of breast (principal)
CPT/HCPCS: 77063; 77067